=== PATIENT | female | born 1970 | race African-American/Black ===

== ENCOUNTER 2019-07-02 10:24 | Outpatient (CLI) | payer OTHER ==
--- NOTE | 2019-07-02 10:46 | RAD ---
Exam: Chest 2 views HISTORY:Pain Comparison: 09/21/2012 FINDINGS: Lungs: No masses or consolidation. Cardiac silhouette: Normal size Pulmonary vessels: Normal Pleural Spaces: Clear Pneumothorax: None Osseous abnormalities: None of acuity. IMPRESSION: No focal consolidation.
== END 2019-07-02 10:25 | disposition home or self-care (01) ==
LOC: EKG 10:24 → RAD 10:25
PROVIDERS: ATTEND Internal Medicine Infectious Disease
DX: R07.9 Chest pain, unspecified (principal)
CPT/HCPCS: 71046

== ENCOUNTER 2019-07-19 12:39 | Outpatient (CLI) | payer OTHER | END 2019-07-19 12:40 | disposition home or self-care (01) | LOC: ULT 12:39 | PROVIDERS: ATTEND Internal Medicine Infectious Disease | DX: R07.9 Chest pain, unspecified (principal); I08.1 Rheumatic disorders of both mitral and tricuspid valves | CPT/HCPCS: 93306 ==

== ENCOUNTER 2025-02-02 13:50 | Emergency (ER) | payer MEDICAID, OTHER ==
[2025-02-02 15:48] LABS: CAUTI Indications for Culture Pelvic or flank pain; Glucose, Urine (Dipstick) Normal (Negative); Leukocyte Negative Leu/uL (Negative); Protein, Urine (Dipstick) 30 mg/dL (Neg-Trace); RBC/HPF 0-3 HPF (0-3); Specific Gravity, Urine 1.038 (1.002-1.036); WBC/HPF 0-3 HPF (0-3)
[2025-02-02 15:59] LABS: Bacteria/HPF Rare-Few HPF (None Seen); Yeast-Budding Rare HPF (None Seen)
[2025-02-02 16:00] LABS: Urine Culture Reflex No No
[2025-02-02] MEDS ORDERED: HYDROcodone/Acetaminophen 5/325 mg Tablet ONE (16:38)
== END 2025-02-02 16:40 | disposition home or self-care (01) ==
LOC: ERS 13:50
DX: B02.23 Postherpetic polyneuropathy (principal); B02.9 Zoster without complications; B20 Human immunodeficiency virus [HIV] disease; I10 Essential (primary) hypertension; Z87.891 Personal history of nicotine dependence
CPT/HCPCS: 81001; 93005; 99283